=== PATIENT | female | born 2000 | race Caucasian/White ===

== ENCOUNTER 2022-04-09 23:52 | Emergency (ER) | payer SELFPAY ==
[~2022-04-09] VITALS: Ht 162.6 cm; Wt 90.7 kg
[2022-04-10 01:17] LABS: CLARITY,URINE SL CLOUDY (CLEAR); COLOR,URINE YELLOW (YELLOW); KETONES,URINE NEGATIVE (NEGATIVE); LEUKOCYTE ESTERASE ,URINE MODERATE (NEGATIVE); NITRITE,URINE NEGATIVE (NEGATIVE); PROTEIN,URINE DIPSTICK NEGATIVE (NEGATIVE); URINE UROBILINOGEN 0.2 mg/dL (0.2 - 1)
[2022-04-10 01:24] LABS: BACTERIA,URINE FEW /HPF; EPITHELIAL CELLS,URINE MODERATE /LPF; RBC,URINE 0-5 /HPF (0-5); WBC,URINE (MAN) 21-50 /HPF (0-5)
== END 2022-04-10 02:00 | disposition home or self-care (01) ==
LOC: ER 04-10 00:24
DX: R55 Syncope and collapse (principal); F84.0 Autistic disorder; F31.9 Bipolar disorder, unspecified
CPT/HCPCS: 36415; 81001; 81025; 82948; 93005; 99283